=== PATIENT | male | born 1955 | race Caucasian/White ===

== ENCOUNTER 2018-08-22 15:07 | Outpatient (CLI) ==
--- NOTE | 2018-08-22 15:51 | DI ---
EXAM: Three views of the lumbar spine. History: Lower back pain. Comparison: CT abdomen pelvis 08/22/2018 Findings: Atherosclerotic vascular calcifications. No acute fracture or subluxation of the lumbar s pine. Moderate disc space narrowing at L1-L2 and L2-L3 with endplate sclerosis and osteophyte format ion. Mild to moderate disc space narrowing seen elsewhere. Moderate to severe facet hypertrophy on the right and L5-S1. Impression: 1. No acute osseous abnormality of the lumbar spine. 2. Degenerative changes. 3. Atherosclerotic vascular disease
--- NOTE | 2018-08-22 16:07 | CT ---
EXAM: CT ABDOMEN AND PELVIS HISTORY: Lower back pain TECHNIQUE: CT abdomen and pelvis without intravenous contrast. Images were reconstructed using 3 mm section thickness. Reformations were prepared. COMPARISON: None FINDINGS: Diagnostic limitations may exist without including contrast enhanced images. There are four visible, small low attenuation lesions of the liver, mostly right lobe. Largest measures 15 mm. Spleen is un remarkable. What appears to represent a contracted gallbladder has a small stone within its lumen. No surrounding inflammation. Pancreas is within normal limits. Normal adrenal glands. No renal bisi culi are seen. There are a few vascular calcifications present within the kidneys. There is promine nce of the left renal pelvis and collecting system which appears to represent mild hydronephrosis alt sepideh there is no visible ureteral calculus. No gross renal masses are seen. There is subtle left p erinephric fat stranding. There is moderately severe atherosclerotic disease with fusiform aneurysma l dilatation of the infrarenal aorta measuring up to 3.3 cm. Tiny fatty diaphragmatic hernia of the medial left hemidiaphragm. There is no gastric distension. What appears to represent the appendix has no evidence of inflammation. Bowel gas pattern is nonobst ructive. There is no ascites. No urinary bladder abnormality or calculus is seen. No prostate is c learly seen. Apparent postop changes of the right inguinal region which in part may be vascular in nature versus c alcification of the upper femoral artery wall. Correlate with history. There are bilateral prominen t inguinal lymph nodes. No ventral hernia is seen. Mild degenerative changes of the spine. Lung ba ses are clear. No pneumoperitoneum. IMPRESSION: 1. Mild left hydronephrosis of indeterminate etiology. No ureteral calculi are identified. Conceiv ably a recently passed calculus could account for this. There are no urinary bladder stones. Other pathology including urothelial neoplasia or noncalcified ureteral calculus could be considered. Cons ider urologic consultation and further imaging could include urogram protocol CT. 2. Several small low attenuation lesions of the liver may represent cysts or hemangiomas. Less like ly metastatic disease. Initial further imaging could include right upper quadrant ultrasound. 3. Contracted gallbladder with a small calculus although no inflammation. 4. Severe atherosclerotic disease with fusiform aneurysmal caliber of the infrarenal aorta at 3.3 cm . 5. Small fatty left medial diaphragmatic hernia. 6. Prominent bilateral inguinal lymph nodes. Apparent postop changes near the right inguinal region , correlate with history.
== END 2018-08-22 15:08 | disposition home or self-care (01) ==
LOC: RAD 15:07
PROVIDERS: ATTEND Family Medicine
DX: M54.5 Low back pain (principal)
CPT/HCPCS: 74176